=== PATIENT | female | born 1990 | race Native Hawaiian/Other Pacific Islander ===

== ENCOUNTER 2018-05-20 09:35 | Outpatient (CLI) | payer OTHER | END 2018-05-20 23:27 | disposition home or self-care (01) | LOC: US 09:35 | DX: R93.5 Abnormal findings on diagnostic imaging of other abdominal regions, including retroperitoneum (principal) ==

== ENCOUNTER 2018-06-05 08:43 | Day surgery (SDC) | payer OTHER | END 2018-06-05 15:30 | disposition home or self-care (01) | LOC: OR 08:43 | PROC: 0DB68ZZ Excision of Stomach, Via Natural or Artificial Opening Endoscopic (ICD-10-PCS; principal; 2018-06-05) | PROC: 0DB88ZZ Excision of Small Intestine, Via Natural or Artificial Opening Endoscopic (ICD-10-PCS; 2018-06-05) | DX: K22.10 Ulcer of esophagus without bleeding (principal); K29.50 Unspecified chronic gastritis without bleeding; R10.13 Epigastric pain; R11.2 Nausea with vomiting, unspecified; K21.0 Gastro-esophageal reflux disease with esophagitis; R12 Heartburn | CPT/HCPCS: J2001; J2250; J2405; J2704 ==

== ENCOUNTER 2020-02-12 23:29 | Emergency (ER) | payer OTHER ==
[~2020-02-12] VITALS: Ht 152.4 cm; Wt 108.4 kg
[2020-02-13 00:42] LABS: POTASSIUM 3.4 mmol/L (3.6-5.2)
[2020-02-13 00:45] LABS: PLATELET COUNT 265 K/uL (152-353)
[2020-02-13 01:17] VITALS: BP 120/64; TEMP 98.4
== END 2020-02-13 01:18 | disposition home or self-care (01) ==
LOC: ED 23:29
DX: R10.13 Epigastric pain (principal); Z20.828 Contact with and (suspected) exposure to other viral communicable diseases
CPT/HCPCS: 36415; 80053; 81000; 85027; 86318; 87635; 93005; 99283; U0003

== ENCOUNTER 2020-05-03 16:13 | Emergency (ER) | payer OTHER ==
[~2020-05-03] VITALS: Ht 152.4 cm; Wt 110.2 kg
[2020-05-03 16:24] VITALS: BP 120/75; TEMP 97.9
== END 2020-05-03 18:28 | disposition home or self-care (01) ==
LOC: ED 16:13
DX: N93.8 Other specified abnormal uterine and vaginal bleeding (principal)
CPT/HCPCS: 99281

== ENCOUNTER 2020-06-24 10:19 | Outpatient (CLI) | payer OTHER ==
[2020-06-24 11:26] LABS: PLATELET COUNT 296 K/uL (152-353)
[2020-06-24 11:30] LABS: POTASSIUM 3.7 mmol/L (3.6-5.2)
== END 2020-06-24 20:26 | disposition home or self-care (01) ==
LOC: LABW 10:19
PROVIDERS: ATTEND Podiatrist
DX: Z01.810 Encounter for preprocedural cardiovascular examination (principal); Z01.811 Encounter for preprocedural respiratory examination; Z01.812 Encounter for preprocedural laboratory examination
CPT/HCPCS: 36415; 80053; 80323; 85027; 93005

== ENCOUNTER 2020-07-11 11:25 | Emergency (ER) | payer OTHER ==
[~2020-07-11] VITALS: Ht 152.4 cm; Wt 110.2 kg
[2020-07-11 11:33] VITALS: TEMP 97.4
[2020-07-11 12:42] LABS: PLATELET COUNT 274 K/uL (152-353)
[2020-07-11 12:51] LABS: POTASSIUM 3.8 mmol/L (3.6-5.2); SODIUM 139 mmol/L (136-145)
[2020-07-11 12:59] LABS: PARTIAL THROMBOPLASTIN TIME 23.7 SECONDS (24.5-33.6)
[2020-07-11 14:46] VITALS: BP 121/68
== END 2020-07-11 14:48 | disposition home or self-care (01) ==
LOC: ED 11:25
PROVIDERS: Hospitalist
DX: R42 Dizziness and giddiness (principal)
CPT/HCPCS: 36415; 80053; 80320; 81000; 81025; 82550; 83880; 84484; 85027; 85610; 85730; 93005; 96360; 96375; 99284; J2405

== ENCOUNTER 2020-10-14 17:07 | Emergency (ER) | payer OTHER ==
[~2020-10-14] VITALS: Ht 152.4 cm; Wt 110.2 kg
[2020-10-14 22:12] VITALS: BP 113/74; TEMP 99.3
== END 2020-10-14 22:12 | disposition home or self-care (01) ==
LOC: ED 17:07
DX: I88.9 Nonspecific lymphadenitis, unspecified (principal)
CPT/HCPCS: 96372; 99283; J1885

== ENCOUNTER 2021-07-01 10:54 | Outpatient (CLI) | payer OTHER | END 2021-07-01 20:47 | disposition home or self-care (01) | LOC: MRI 10:54 | PROVIDERS: ATTEND Nurse Practitioner Primary Care | DX: R51.9 Headache, unspecified (principal) ==

== ENCOUNTER 2021-08-02 16:24 | Emergency (ER) | payer OTHER ==
[~2021-08-02] VITALS: Ht 154.9 cm; Wt 114.3 kg
[2021-08-02 16:24] VITALS: TEMP 97.5
[2021-08-02 17:15] LABS: PLATELET COUNT 276 K/uL (152-353)
[2021-08-02 17:22] LABS: POTASSIUM 3.2 mmol/L (3.6-5.2)
[2021-08-02 17:24] VITALS: BP 113/71
== END 2021-08-02 20:08 | disposition home or self-care (01) ==
LOC: ED 16:24
PROVIDERS: Emergency Medicine
DX: R07.89 Other chest pain (principal)
CPT/HCPCS: 80053; 81000; 81025; 84484; 85027; 85610; 93005; 96374; 96375; 99284; J2270; J2405; J3490

== ENCOUNTER 2021-09-07 17:10 | Emergency (ER) | payer OTHER ==
[~2021-09-07] VITALS: Ht 154.9 cm; Wt 117.0 kg
[2021-09-07 18:15] LABS: POTASSIUM 3.3 mmol/L (3.6-5.2)
[2021-09-07 19:09] LABS: PLATELET COUNT 282 K/uL (152-353)
[2021-09-07 19:30] VITALS: BP 131/71; TEMP 98.8
== END 2021-09-07 19:45 | disposition home or self-care (01) ==
LOC: ED 17:10
PROVIDERS: Emergency Medicine Emergency Medical Services
DX: R07.89 Other chest pain (principal)
CPT/HCPCS: 80053; 83880; 84484; 85027; 85379; 85610; 93005; 99283